=== PATIENT | female | born 1990 | race Caucasian/White ===

== ENCOUNTER 2016-07-05 18:00 | Inpatient (IN) | payer BC, OTHER ==
[2016-07-10] MEDS ORDERED: RINGERS SOLUTION,LACTATED 1,000 ML IV ONE (00:14)
[2016-07-10] MEDS ORDERED: LIDOCAINE HCL 50 ML VIAL PERI PRN (00:14)
[2016-07-10] MEDS ORDERED: ONDANSETRON HCL/PF 2 MG/ML VIAL IV PRN ×2 (00:14→14:20)
[2016-07-10] MEDS ORDERED: OXYTOCIN/DEXTROSE 5%-WATER 30 UNITS/500 ML BAG IV ONE (00:14)
[2016-07-10] MEDS ORDERED: MISOPROSTOL 100 MCG TABLET VG PRN (00:14)
--- NOTE | 2016-07-10 08:28 | PN ---
Progess Note - Interim Narrative: 07/10/16 08:27 Patient starting to become more uncomfortable with contractions Vital signs stable. Status post 1 dose of Cytotec around 1 AM this morning FHT: 120 baseline, reassuring Contractions q 2-3 min Cervix: Fingertips/80/-1 Impression: Intrauterine at 40 6/7 weeks obstruction of labor for postdates Plan: Continue present plan
[2016-07-10] MEDS ORDERED: BUTORPHANOL TARTRATE 2 MG/ML VIAL IV PRN (10:26)
--- NOTE | 2016-07-10 12:46 | PN ---
Progess Note - Interim Narrative: 07/10/16 12:45 Patient got some relief with Stadol starting to become more uncomfortable again Vital signs stable. FHT: 120 baseline, reassuring Contractions q 2-3 min Cervix: Fingertips/90/-1 Impression: Intrauterine at 40 6/7 weeks induction of labor for postdates Plan: Plan to insert a Paez bulb 1 cervix is dilated enough
--- NOTE | 2016-07-10 14:07 | PN ---
Progess Note - Interim Narrative: 07/10/16 14:06 Patient in moderate-severe pain with contractions Cervix /- AROM at 1350, clear fluid Patient fluid bolus for epidural placement.
[2016-07-10] MEDS ORDERED: NALOXONE HCL 1 MG/1 ML SYRG IV PRN (14:20)
[2016-07-10] MEDS ORDERED: fentaNYL CITRATE/PF 50 MCG/ML AMPUL IT SCH (14:30)
--- NOTE | 2016-07-10 15:06 | OR ---
Anesthesia Procedure Note - Anesthesia Procedure Note Narrative: 07/10/16 15:06 ANESTHESIA PROCEDURE NOTE Date of Procedure: 07/10/2016 Time of procedure: 1430. Performed by: José Manuel Serra CRNA Fretted Instruments Inspector: None. Preprocedure diagnosis: Active labor. Post procedure diagnosis: Same. Procedure: Insertion of labor epidural. 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 Findings: See below. Details of the procedure: The patient was placed in a sitting position. Back was prepped with DuraPrep. Patient was then draped in a sterile fashion. Lidocaine 1% was infiltrated to the skin and subcutaneous tissues at the level of the L3 4 interspace. The epidural space was identified using a 18-gauge Tuohy needle with [id number] technique. 20 mcg fentanyl was given intrathecally using a 27 ga. spinal needle. Epidural catheter was inserted without difficulty. Negative test dose was elicited using 5 mL of 1.5% preservative-free lidocaine plus epinephrine 1 200,000. The epidural catheter was then taped and secured in place. EBL: Minimal. Fluids: N/A. Specimen: N/A. Post procedure condition: The patient tolerated the procedure well. No complications were noted. Thank you for this consultation. Murray CRNA
[2016-07-10] MEDS: BUPIVACAINE HCL/0.9 % NACL/PF 250 ML EP PRN (15:18)
[2016-07-10] MEDS: DEXTROSE 5%-LACTATED RINGERS 1,000 ML IV PRN ×2 (19:19→23:08)
[2016-07-10] MEDS ORDERED: ACETAMINOPHEN 325 MG TABLET PO ONE (22:11)
[2016-07-11] MEDS: DEXTROSE 5%-LACTATED RINGERS 1,000 ML IV PRN ×2 (03:31→07:23)
[2016-07-11] MEDS: BUPIVACAINE HCL/0.9 % NACL/PF 250 ML EP PRN (04:09)
--- NOTE | 2016-07-11 08:29 | OR ---
Operative Report - Dictated Report Narrative: Spontaneous vaginal delivery of viable male at 0758 on 07/11/2016 with Apgars 8 and 8, weighing 3497 g in LYNNE position. Cord clamping delayed approximately 1 minute Placenta delivered complete, intact, with three vessel cord Estimated blood loss: less than 50 ml Lacerations: 3cm ssecond degree vaginal laceration repaired with 3-0 Vicryl Rapide
[2016-07-11] MEDS ORDERED: GLYCERIN/WITCH HAZEL LEAF 40 APPL BOX TP PRN (08:30)
[2016-07-11] MEDS ORDERED: HYDROCORTISONE 30 APPL TUBE TP PRN (08:30)
[2016-07-11] MEDS ORDERED: SENNOSIDES 8.6 MG TABLET PO PRN (08:30)
[2016-07-11] MEDS ORDERED: BISACODYL 10 MG SUPP.RECT RC PRN (08:30)
[2016-07-11] MEDS ORDERED: oxyCODONE HCL/ACETAMINOPHEN 1 TAB TABLET PO PRN (08:30)
[2016-07-11] MEDS ORDERED: OXYTOCIN/DEXTROSE 5%-WATER 30 UNITS/500 ML BAG IV ONE (08:30)
[2016-07-11] MEDS ORDERED: BENZOCAINE/MENTHOL 81 SPRAY CAN TP PRN (08:30)
[2016-07-11] MEDS: IBUPROFEN 800 MG TABLET PO PRN ×3 (09:03→22:39)
[2016-07-11] MEDS: oxyCODONE HCL/ACETAMINOPHEN 1 TAB TABLET PO PRN ×3 (09:04→22:40)
[2016-07-11] MEDS: DOCUSATE SODIUM 100 MG CAPSULE PO SCH ×2 (16:37→21:48)
[2016-07-12] MEDS: oxyCODONE HCL/ACETAMINOPHEN 1 TAB TABLET PO PRN ×3 (06:07→19:16)
[2016-07-12] MEDS: IBUPROFEN 800 MG TABLET PO PRN ×3 (06:08→19:17)
--- NOTE | 2016-07-12 09:49 | PN ---
Subjective - Date and Time Seen Date: 07/12/16 Time: 09:49 Objective - Vitals Vitals: Last Vital Signs Temp 36.5 C 07/12/16 08:30 Pulse 81 07/12/16 08:30 Resp 20 07/12/16 08:30 BP 131/68 07/12/16 08:30 Pulse Ox 98 07/11/16 19:17 Patient denies complaints. Lochia wnl Abdomen - soft, nontender Uterus - firm, at umbilicus - 1 No calf tenderness Impression: day #1 - s/p spontaneous vaginal delivery. Plan: Continue routine care
[2016-07-12] MEDS: DOCUSATE SODIUM 100 MG CAPSULE PO SCH ×2 (12:19→20:02)
[2016-07-13] MEDS: IBUPROFEN 800 MG TABLET PO PRN (01:17)
[2016-07-13 02:28] VITALS: BP 119/79
[2016-07-13] MEDS: oxyCODONE HCL/ACETAMINOPHEN 1 TAB TABLET PO PRN (04:46)
--- NOTE | 2016-07-13 08:51 | PN ---
Subjective - Date and Time Seen Date: 07/13/16 Time: 08:51 Objective - Vitals Vitals: Last Vital Signs Temp 36.9 C 07/13/16 02:27 Pulse 57 L 07/13/16 02:27 Resp 16 07/13/16 02:27 BP 119/79 07/13/16 02:27 Pulse Ox 98 07/13/16 02:27 Patient denies complaints. Lochia wnl Abdomen - soft, nontender Uterus - firm, at umbilicus - 2 No calf tenderness Impression: day #2 - s/p spontaneous vaginal delivery. Plan: Routine discharge instructions
[2016-07-13] MEDS: DOCUSATE SODIUM 100 MG CAPSULE PO SCH (09:07)
== END 2016-07-13 11:30 | disposition home or self-care (01) | DRG 775 ==
LOC: OBCLINIC 18:00 → OB 07-10 00:05 → EDSTATUS 07-10 18:00
PROVIDERS: ADMIT Obstetrics & Gynecology; ATTEND Obstetrics & Gynecology
PROC: 10E0XZZ Delivery of Products of Conception, External Approach (ICD-10-PCS; principal; 2016-07-11)
PROC: 0KQM0ZZ Repair Perineum Muscle, Open Approach (ICD-10-PCS; 2016-07-11)
PROC: 10907ZC Drainage of Amniotic Fluid, Therapeutic from Products of Conception, Via Natural or Artificial Opening (ICD-10-PCS; 2016-07-11)
PROC: 4A1HXCZ Monitoring of Products of Conception, Cardiac Rate, External Approach (ICD-10-PCS; 2016-07-11)
PROC: 3E0S3CZ (ICD-10-PCS; 2016-07-11)
DX: O48.0 Post-term pregnancy (principal); O99.02 Anemia complicating childbirth; O70.1 Second degree perineal laceration during delivery; D50.8 Other iron deficiency anemias; Z3A.41 41 weeks gestation of pregnancy; Z37.0 Single live birth

== ENCOUNTER 2018-12-23 11:42 | Inpatient (IN) ==
[2018-12-23] MEDS ORDERED: MISOPROSTOL 100 MCG TABLET VG PRN (11:50)
[2018-12-23 12:09] LABS: Hematocrit 34.3 % (37.0-47.0); Hemoglobin 11.6 gm/dL (12.5-16.0); Mean Cell Volume 94.2 fl (78-100); Mean Corpuscular Hemoglobin 31.9 pg (27-31); Mean Corpuscular Hgb Conc 33.8 g/dl (32-36); Mean Platelet Volume 11.8 fl (8-12.5); Neutrophil # 6.9 K/mm3 (1.3-6.0); Neutrophil % 71.5 % (42-75.0); Platelet Count 223 K/mm3 (150-450); Red Blood Count 3.64 M/mm3 (4.2-5.4); White Blood Count 9.7 K/mm3 (4.0-10.5)
[2018-12-23 12:18] LABS: Albumin * 2.8 gm/dl (3.4-5.0); Anion Gap 14.5 mmol/L (6.8-13.8); BUN/Creatinine Ratio 14.3 (9.0-21.6); Bilirubin, Total 0.6 mg/dL (0.0-1.1); Ca. Corrected For Albumin 9.4 mg/dL (8.4-10.2); Calcium * 8.8 mg/dL (7.9-10.9); Carbon Dioxide 21.4 mmol/L (24-32.6); Potassium 3.9 mmol/L (3.4-4.6); Total Protein 6.8 gm/dL (6.2-8.2)
[2018-12-23 13:20] LABS: Random Urine Total Protein 12.6 mg/dL (0-12)
[2018-12-23 13:56] LABS: Cocaine Ur Negative (NEGATIVE); Urine Barbiturate Negative (NEGATIVE); Urine Benzodiazepines Negative (NEGATIVE); Urine Opiates Negative (NEGATIVE); Urine PCP Negative (NEGATIVE); Urine THC Negative (NEGATIVE)
--- NOTE | 2018-12-23 17:31 | HP ---
Chief Complaint - Chief Complaint Date of Service: 12/23/18 Time of Service: 17:24 Chief Complaint: IOL History of Present Illness: 28 yo at 38 4/7 weeks presents to L&D for induction of labor due to gestational hypertension. Patient had elevated blood pressures in the office last week 138/93 and today 134/94 and 138/91. She denies headache, visual changes, or epigastric pain. This complicated by anemia, uncomplicated asthma, and now GHTN. Rh positive Rubella immune GBS negative. Medical History (Updated 10/01/18 @ 13:54 by Candace Johns RN) Acne Onset Date: Unknown Anemia Onset Date: Unknown As a teenage. 2017-w/pregnancies Asthma Onset Date: Unknown When she gets respiratory infections Body piercing Nonpuerperal abscess of breast Onset Date: Unknown Palpitations Onset Date: ~2011 x2. Holter monitor was negative. Seasonal allergies Onset Date: Unknown Rhinitis , spontaneous [place] teeth extracted Onset Date: ~2012 Surgical History: Surgical History (Updated 10/05/17 @ 16:43 by Candace Johns RN) History of adenoidectomy Onset Date: ~2008 History of cholecystectomy Onset Date: ~2014 History of tonsillectomy Onset Date: ~2008 Skin Tumor Removal Onset Date: ~2002 Fatty tumor removed from right shoulder Family History: Family History (Updated 10/05/17 @ 16:56 by Candace Johns RN) Brother Autism Hypertension Depression Epilepsy Father Alcohol abuse Grandfather Parkinsons disease Grandfather Cancer Lung cancer Mother Alive and well Social History: (Last Reviewed 12/23/18 @ 17:28 by Chito Hilliard DO) Social History: adopted: No jail: No Marital status: household members: children, spouse number of children: 1 current occupational status: employed current occupation: Nurse current occupational exposures/hazards: No Highest education level completed: Associate degree: academi Service: No Tobacco: Smoking Status: Never smoker Alcohol: alcohol intake: current alcohol intake frequency: holiday/special occasion Substance Use: substance use type: does not use Dietary Habits: caffeine: Yes caffeine comment: 4/wk Type: coffee daily servings of milk/calcium: 2-4 Exercise: Physical activity type: none frequency: 3-4 times per week Juhi/Mosque: special juhi needs: No agree to transfusion: Yes Personal Safety: do you feel safe at home: Yes Review Of Systems (GEN) - Review of Systems Generalized/Overall Review: Present: No Symptoms Reported EENTM: Present: No Symptoms Reported Respiratory: Present: No Symptoms Reported Cardiac: Present: No Symptoms Reported Abdominal: Present: No Symptoms Reported Genitourinary: Present: No Symptoms Reported Musculoskeletal: Present: No Symptoms Reported Neurological: Present: No Symptoms Reported Skin: Present: No Symptoms Reported Endocrine: Present: No Symptoms Reported Allergies/Adverse Reactions: Allergies Allergy/AdvReac Type Severity Reaction Status Date / Time amoxicillin [From Augmentin] Allergy Hives Verified 12/23/18 14:01 clavulanic acid Allergy Hives Verified 12/23/18 14:01 [From Augmentin] Sulfa (Sulfonamide Allergy Unknown Verified 12/23/18 14:01 Antibiotics) Home Medications: HOME MEDICATIONS Calcium Carbonate/Vitamin D3 [Calcium 500+D Tablet Chew] 1 ea PO DAILY 07/10/16 [Last Taken 07/09/16] Inulin/Chromium Picolinate [Fiber Gummies] 1 tab PO DAILY 07/10/16 [Last Taken 07/09/16 09:00] Vits96/Iron Fum/Folic [ S] 1 tab PO DAILY 07/10/16 [Last Taken 12/22/18] clindamycin 1 % topical gel 1 applic TP DAILY 10/08/17 [Last Taken 12/23/18] lactobacillus rhamnosus R0011 20 billion cell capsule See Rx Instructions PO .COMPLEX cap 10/08/17 [Last Taken 12/22/18] ferrous sulfate 325 mg (65 mg iron) tablet 325 mg PO DAILY #30 tab 10/01/18 [Last Taken 12/22/18] breast pump See Dose Instructions .ROUTE .MEDSUPPLY #1 ea 12/16/18 [Last Taken Unknown] Exam - Exam Vital Signs: Vital Signs - Last Taken Temp 36.4 C 12/23/18 12:35 Pulse 88 12/23/18 12:35 Resp 18 12/23/18 12:35 BP 125/76 12/23/18 12:35 Pulse Ox 98 12/23/18 12:35 Constitutional: Present: Alert, Oriented x3, Cooperative, No distress ENT Exam: Present: hearing grossly normal Breasts: Present: Exam deferred Respiratory: Present: lungs clear, no respiratory distress Cardiovascular/Chest: Present: regular rate, rhythm Abdomen: Present: soft, nontender, no rebound tenderness, other - gravid /Rectal: Present: Other - Cervix FT/th/-3 Extremity: Present: no pedal edema, no calf tenderness Skin Exam: Present: normal color, warm/dry, no cyanosis Neurologic: Present: alert, normal mood/affect, oriented x 3, other - DTR 2/4 b/l Appearance: Present: appropriate appearance, appropriate insight Eye contact: Present: cooperative, good eye contact, normal speech Thoughts: Present: normal thought pattern, normal mood /affect Diagnostic Studies: Abnormal Lab Results 12/23/18 12/23/18 12/23/18 Range/Units 11:59 11:59 Unknown RBC 3.64 L (4.2-5.4) M/mm3 Hgb 11.6 L (12.5-16.0) gm/dL Hct 34.3 L (37.0-47.0) % MCH 31.9 H (27-31) pg Immature Gran % (Auto) 3.50 H (0.001-0.429) % Immature Gran # (Auto) 0.34 H (0.000-0.0310) K/mm3 Lymphocytes % 17.8 L (20-51) % Neutrophils # 6.9 H (1.3-6.0) K/mm3 Carbon Dioxide 21.4 L (24-32.6) mmol/L Anion Gap 14.5 H (6.8-13.8) mmol/L Est GFR (Non-Af Amer) 136 H (60-130) mL/min ALT 14 L (19-67) U/L Albumin 2.8 L (3.4-5.0) gm/dl Ur Random Creatinine 51.3 L (60-200) mg/dL U Random Total Protein 12.6 H (0-12) mg/dL U [place] Prot/Creat Ratio 246 H (0-199) mg/gm Laboratory Results WBC 9.7 K/mm3 (4.0-10.5) 12/23/18 11:59 RBC 3.64 M/mm3 (4.2-5.4) L 12/23/18 11:59 Hgb 11.6 gm/dL (12.5-16.0) L 12/23/18 11:59 Hct 34.3 % (37.0-47.0) L 12/23/18 11:59 MCV 94.2 fl (78-100) 12/23/18 11:59 MCH 31.9 pg (27-31) H 12/23/18 11:59 MCHC 33.8 g/dl (32-36) 12/23/18 11:59 RDW 14.0 % (11.5-14.0) 12/23/18 11:59 Plt Count 223 K/mm3 (150-450) 12/23/18 11:59 MPV 11.8 fl (8-12.5) 12/23/18 11:59 Immature Gran % (Auto) 3.50 % (0.001-0.429) H 12/23/18 11:59 Immature Gran # (Auto) 0.34 K/mm3 (0.000-0.0310) H 12/23/18 11:59 71.5 % (42-75.0) 12/23/18 11:59 17.8 % (20-51) L 12/23/18 11:59 6.3 % (0.0-9) 12/23/18 11:59 0.4 % (0.0-3.0) 12/23/18 11:59 0.5 % (0.0-1.0) 12/23/18 11:59 Nucleated RBC % 0.0 k/mm3 (0-1) 12/23/18 11:59 6.9 K/mm3 (1.3-6.0) H 12/23/18 11:59 1.72 k/mm3 (1.5-3.5) 12/23/18 11:59 0.6 k/mm3 (0.0-1.0) 12/23/18 11:59 0.0 k/mm3 (0.0-0.7) 12/23/18 11:59 Absolute Basophils 0.1 k/mm3 (0.0-0.1) 12/23/18 11:59 Sodium 136 mmol/L (132-142) 12/23/18 11:59 136 mmol/L (130-142) 12/23/18 11:59 Potassium 3.9 mmol/L (3.4-4.6) 12/23/18 11:59 Chloride 104 mmol/L (97-106) 12/23/18 11:59 Carbon Dioxide 21.4 mmol/L (24-32.6) L 12/23/18 11:59 14.5 mmol/L (6.8-13.8) H 12/23/18 11:59 BUN 8 mg/dL (3-23) 12/23/18 11:59 0.56 mg/dL (0.4-1.4) 12/23/18 11:59 Est GFR (Non-Af Amer) 136 mL/min (60-130) H 12/23/18 11:59 14.3 (9.0-21.6) 12/23/18 11:59 108 mg/dL (70-110) 12/23/18 11:59 Calcium 8.8 mg/dL (7.9-10.9) 12/23/18 11:59 Calcium Adj for Albumin 9.4 mg/dL (8.4-10.2) 12/23/18 11:59 0.6 mg/dL (0.0-1.1) 12/23/18 11:59 AST 23 U/L (0-48) 12/23/18 11:59 ALT 14 U/L (19-67) L 12/23/18 11:59 170 U/L (50-170) 12/23/18 11:59 6.8 gm/dL (6.2-8.2) 12/23/18 11:59 2.8 gm/dl (3.4-5.0) L 12/23/18 11:59 Ur Random Creatinine 51.3 mg/dL (60-200) L 12/23/18 Unknown U Random Total Protein 12.6 mg/dL (0-12) H 12/23/18 Unknown U [place] Prot/Creat Ratio 246 mg/gm (0-199) H 12/23/18 Unknown Negative (NEGATIVE) 12/23/18 Unknown Negative (NEGATIVE) 12/23/18 Unknown Ur Phencyclidine Scrn Negative (NEGATIVE) 12/23/18 Unknown Urine Amphetamine Negative (NEGATIVE) 12/23/18 Unknown U Benzodiazepines Scrn Negative (NEGATIVE) 12/23/18 Unknown Negative (NEGATIVE) 12/23/18 Unknown Negative (NEGATIVE) 12/23/18 Unknown NST reactive. Assessment/Plan - Assessment/Plan (1) Gestational hypertension Assessment: Admit for Cytotec induction of labor. Epidural PRN. Pitocin PRN. Preeclampsia precautions. Problem: Acute Qualifiers: Trimester: third trimester Qualified Code(s): O13.3 - Gestational [-induced] hypertension without significant proteinuria, third trimester (2) Asthma Problem: Inactive Qualifiers: Asthma severity: mild Asthma persistence: intermittent Asthma complication type: uncomplicated Qualified Code(s): J45.20 - Mild intermittent asthma, uncomplicated (3) Anemia Problem: Resolved Qualifiers: Anemia type: iron deficiency Iron deficiency anemia type: inadequate dietary iron intake Qualified Code(s): D50.8 - Other iron deficiency anemias
[2018-12-23] MEDS ORDERED: ACETAMINOPHEN 500 MG TABLET PO PRN (19:43)
[2018-12-23] MEDS: OXYTOCIN/DEXTROSE 5%-WATER 30 UNITS/500 ML BAG IV ONE (20:20)
--- NOTE | 2018-12-24 12:35 | PN ---
Progess Note - Interim Date: 12/24/18 Time: 12:32 Narrative: 12/24/18 12:32 Patient becoming much more uncomfortable with contractions Vital signs stable. Pitocin at 12 mu/min. FHT: 140 baseline, moderate variability, good accelerations, occasional mild variable deceleration, rare late deceleration. Contractions q 2-3 min Cervix: Soft, posterior, unable to get to internal loss, probably about 3/50/-4. Paez bulb that was placed within the cervical canal earlier this morning is out. Impression: Intrauterine at 38 5/7 weeks induction of labor for gestational hypertension Plan: We will try various position changes get had to engage in pelvis. AROM when possible. Epidural when desires.
[2018-12-24] MEDS: OXYTOCIN/DEXTROSE 5%-WATER 30 UNITS/500 ML BAG IV ONE (20:13)
[2018-12-24] MEDS: RINGER'S SOLUTION,LACTATED 1,000 ML IV ONE (20:13)
[2018-12-24] MEDS ORDERED: NALOXONE HCL 1 MG/1 ML SYRG IV PRN (20:54)
[2018-12-24] MEDS ORDERED: ONDANSETRON HCL/PF 2 MG/ML VIAL IV PRN (20:54)
[2018-12-24] MEDS ORDERED: BUPIVACAINE HCL/0.9 % NACL/PF 250 ML EP PRN (20:54)
[2018-12-24] MEDS ORDERED: fentaNYL CITRATE/PF 50 MCG/ML AMPUL IT SCH (21:00)
[2018-12-24] MEDS: DEXTROSE 5%-LACTATED RINGERS 1,000 ML IV PRN (21:20)
--- NOTE | 2018-12-24 22:14 | ANES ---
Anesthesia Pre Procedure Eval Vitals/Labs: Last Vital Signs Temp 36.4 C 12/23/18 12:35 Pulse 88 12/23/18 12:35 Resp 18 12/23/18 12:35 BP 125/76 12/23/18 12:35 Pulse Ox 98 12/23/18 12:35 HOME MEDICATIONS RX: Calcium Carbonate/Vitamin D3 [Calcium 500+D Tablet Chew] 1 ea PO DAILY 07/10/16 [Last Taken 07/09/16] RX: Inulin/Chromium Picolinate [Fiber Gummies] 1 tab PO DAILY 07/10/16 [Last Taken 07/09/16 09:00] RX: Vits96/Iron Fum/Folic [ S] 1 tab PO DAILY 07/10/16 [Last Taken 12/22/18] clindamycin phosphate 1 % topical gel 1 applic TP DAILY 10/08/17 [Last Taken 12/23/18] lactobacillus rhamnosus R0011 20 billion cell capsule See Rx Instructions PO .COMPLEX cap 10/08/17 [Last Taken 12/22/18] ferrous sulfate 325 mg (65 mg iron) tablet 325 mg PO DAILY #30 tab 10/01/18 [Last Taken 12/22/18] breast pump See Dose Instructions .ROUTE .MEDSUPPLY #1 ea 12/16/18 [Last Taken Unknown] Allergies/Adverse Reactions: Allergies Allergy/AdvReac Type Severity Reaction Status Date / Time amoxicillin [From Augmentin] Allergy Hives Verified 12/23/18 14:01 clavulanic acid Allergy Hives Verified 12/23/18 14:01 [From Augmentin] Sulfa (Sulfonamide Allergy Unknown Verified 12/23/18 14:01 Antibiotics) - Planned Procedure Planned Procedure: MEDICAL INDUCTION Medication List Reviewed:: Yes Allergies Verified: Yes Medical History (Last Reviewed 12/24/18 @ 22:11 by Ben Sandoval CRNA) Acne Onset Date: Unknown Anemia Onset Date: Unknown As a teenage. 2017-w/pregnancies Asthma Onset Date: Unknown When she gets respiratory infections Body piercing Nonpuerperal abscess of breast Onset Date: Unknown Palpitations Onset Date: ~2011 x2. Holter monitor was negative. Seasonal allergies Onset Date: Unknown Rhinitis , spontaneous [place] teeth extracted Onset Date: ~2012 Surgical History (Last Reviewed 12/24/18 @ 22:11 by Ben Sandoval CRNA) History of adenoidectomy Onset Date: ~2008 History of cholecystectomy Onset Date: ~2014 History of tonsillectomy Onset Date: ~2008 Skin Tumor Removal Onset Date: ~2002 Fatty tumor removed from right shoulder Family History (Last Reviewed 12/24/18 @ 22:11 by Ben Sandoval CRNA) Brother Autism Hypertension Depression Epilepsy Father Alcohol abuse Grandfather Parkinsons disease Grandfather Cancer Lung cancer Mother Alive and well - Family Anesthesia History Family History:: no untoward family reactions to anesthesia, no familial bleeding tendencies, no family history of clotting disorders, no family history of premature - Airway/Neck/Teeth Within Normal Limits:: Yes Neck Exam: full range of motion Mallampatti Score: 2 Thyromental (T-M) distance: > 6 cm Mandibulo Hyoid distance: > 3 cm - Respiratory Respiratory History: asthma Respiratory Physical: lungs clear Smoking Status: Never smoker Sleep Apnea currently treated: No Sleep Apnea by current assessment: No - Cardiovascular Tolerate Activity: Fair Heart Sounds: S1 & S2, Regular - Anesthesia Assessment and Plan ASA Class: PS, II, E Anesthesia Type Plan: Epidural - CSE for labor analgesia
--- NOTE | 2018-12-24 22:32 | ANES ---
Post Anesthesia Discharge - Transfer of Care Transfer of Care handoff given to nurse: Yes - Discharge from PACU Discharge from PACU when meets criteria: Yes - Comfortable post CSE
--- NOTE | 2018-12-24 22:34 | ANES ---
Anesthesia Procedure Note Procedure Note: ANESTHESIA PROCEDURE NOTE Date of Procedure: [12/24/2018 Time of procedure: 22:10 PM. Performed by: GREG Delgadillo CRNA, MSN [employer] Practitioner: Verito Wilde RN. Preprocedure diagnosis: Active labor, labor pain. Post procedure diagnosis: Same. Procedure:Epidural for labor analgesia L3-4. Indications: Labor pain. Findings: See below. Details of the procedure: The patient was placed on the side of the bed in sitting positionand prepped with DuraPrep then draped in a sterile fashion. Li docaine 1% was infiltrated to the skin and subcutaneous tissues at the level of the L3-4 interspace. An 18-gauge Touhy needle was used to approach the epidural space with loss of resistance technique. Once loss of resistance was achieved a 27-gauge spinal needle was passed through the epidural needle and CSF was contacted. After CSF returned, 20 mcg of fentanyl was injected in the spinal needle was removed the epidural catheter was then threaded approximately 4 cm in the epidural needle was removed. The catheter was taped in place and after careful aspiration 3 mL of 1.5% lidocaine with 1-200,000 epinephrine was injected without change in maternal heart rate or sensorium. . EBL: Minimal. Fluids: N/A. Specimen: N/A. Post procedure condition: The patient tolerated the procedure well with good relief. No complications were noted. Thank you for this consultation. Ben Sandoval CRNA, GREG, MSN
--- NOTE | 2018-12-24 23:00 | PN ---
Progess Note - Interim Date: 12/24/18 Time: 22:57 Narrative: 12/24/18 22:57 Patient comfortable with epidural Vital signs stable. Pitocin at 14 mu/min. FHT: 150 baseline, reassuring contractions q 2-3 min Cervix: 5/90/-3 Impression: Intrauterine at 38 5/7 weeks induction of labor for gestational hypertension Plan: Continue present plan. Expect normal vaginal delivery within the next few hours
[2018-12-25] MEDS ORDERED: LIDOCAINE HCL/EPINEPHRINE 20 ML VIAL ONE (03:26)
[2018-12-25] MEDS: RINGER'S SOLUTION,LACTATED 1,000 ML IV ONE (03:31)
--- NOTE | 2018-12-25 03:38 | ANES ---
Post Anesthesia Assessment - Vital Signs Vitals: Last Vital Signs Temp 36.4 C 12/23/18 12:35 Pulse 88 12/23/18 12:35 Resp 18 12/23/18 12:35 BP 125/76 12/23/18 12:35 Pulse Ox 98 12/23/18 12:35 Airway Patency: Normal - Mental Status Level Of Consciousness: Awake, Alert, Appropriate - Pain Level Pain Score: 9 - N/V Assessment Nausea/Vomiting Presence: None Dehydration:: No - Additional Notes Comments:: C/O pain even after previous ropivicaine bolus. No change in pain level after epidural pump stopped. Lidocaine 0.5% with 1:200,000 epinepherine given. No change in 5 minutes, plan interthecal.
[2018-12-25] MEDS ORDERED: fentaNYL CITRATE/PF 50 MCG/ML AMPUL ONE (03:40)
[2018-12-25] MEDS ORDERED: fentaNYL CITRATE/PF 50 MCG/ML AMPUL IT ONE (03:50)
[2018-12-25] MEDS ORDERED: LIDOCAINE HCL/EPINEPHRINE 10 ML VIAL IJ ONE (03:55)
[2018-12-25] MEDS ORDERED: LIDOCAINE HCL/EPINEPHRINE 20 ML VIAL IJ ONE (04:00)
[2018-12-25] MEDS: DEXTROSE 5%-LACTATED RINGERS 1,000 ML IV PRN (04:39)
--- NOTE | 2018-12-25 05:14 | PN ---
Progess Note - Interim Date: 12/25/18 Time: 05:08 Narrative: 12/25/18 05:08 Patient has had difficulty with pain control throughout the night; currently is comfortable with having her epidural redone. Blood pressures have remained stable. Afebrile. Pitocin was turned off due to tach systole currently contractions have significantly spaced out. FHT: 150 baseline, minimum to moderate variability with accelerations and occasional variable deceleration with contractions. IUPC was placed due to inability to assess strength of contractions. Contractions 3 to 5 minutes apart Spontaneous rupture of membranes at 2315 which started as clear and became thick meconium Cervix: 8/edematous/-2, suspect cervical edema may be the patient inadvertently pushing while she was in pain waiting for her epidural. Impression: Intrauterine at 38-6/7 weeks. Induction of labor for gestational hypertension. Plan: Will restart Pitocin to obtain adequate contractions and reassess in the next 1 to 2 hours as long as tracing remains reassuring.
--- NOTE | 2018-12-25 08:02 | PN ---
Progess Note - Interim Date: 12/25/18 Time: 08:00 Narrative: 12/25/18 08:00 Patient comfortable with epidural Vital signs stable. Pitocin at 4 mu/min. FHT: 160 baseline, moderate to severe variables with some of the contractions contractions q 3-4 min Cervix: Rim/0 Impression: Intrauterine at 38 6/7 weeks. Induction of labor for gestational hypertension. Plan: Anticipate normal spontaneous vaginal delivery soon. Risk benefits alternatives to operative vaginal delivery discussed with patient if prolonged deceleration or more frequent decelerations occur during the pushing stage.
[2018-12-25] MEDS ORDERED: OXYTOCIN/DEXTROSE 5%-WATER 30 UNITS/500 ML BAG IV ONE (09:28)
[2018-12-25] MEDS ORDERED: HYDROCORTISONE 30 APPL TUBE TP PRN (09:28)
[2018-12-25] MEDS ORDERED: BENZOCAINE/MENTHOL 81 SPRAY CAN TP PRN (09:28)
[2018-12-25] MEDS ORDERED: oxyCODONE HCL/ACETAMINOPHEN 1 TAB TABLET PO PRN (09:28)
[2018-12-25] MEDS ORDERED: BISACODYL 10 MG SUPP.RECT RC PRN (09:28)
[2018-12-25] MEDS ORDERED: SENNOSIDES 8.6 MG TABLET PO PRN (09:28)
[2018-12-25] MEDS ORDERED: GLYCERIN/WITCH HAZEL LEAF 40 APPL BOX TP PRN (09:28)
--- NOTE | 2018-12-25 09:38 | OR ---
Operative Report - Dictated Report Narrative: Indication: Suspicion of potential/immediate compromise Pre Procedure: Patient was counseled to the risk, benefits, and alternatives to operative vaginal delivery. All questions were answered. Patient consented to proceed with operative vaginal delivery. Cervix was completely dilated and effaced, maternal- size appropriate for application, bladder was emptied, flexion point identified, cup choice appropriate for application site, maternal tissue excluded from vacuum cup heart rate interpretation: Baseline of 145 with 1-1/2-minute decelerations down to the 60s, minimum variability. EFW 3700 g, station +2, Position of head LYNNE Anesthesia: Epidural Procedure: Total application time of the Kiwi Pro with Palm Pump was 108 seconds Maximum vacuum achieved was 500 mm Hg Number of pulls 2 Number of involuntary releases 0 Vacuum reduced between contractions Unable to get adequate seal for sufficient traction to move baby due to excess hair. For this reason further attempts with vacuum or abandon and proceeded with forcep delivery. Degree of rotation 30 Procedure Carpio/Luikart forceps easily applied, hinge/lock approximated without difficulty, 1 pole, advancement in station with each pull, degree of rotation 30 degrees Post Procedure Viable male born at 0907 on 12/25/2018 with Apgars 5 and 8, weighing 3553 g in LYNNE position. Cord gases collected A: 7.19,64.5,TNP,-5.4 V:7.5,24.3,<36.7,-2.3 Placenta spontaneously delivered EBL less than 100 mL, tight nuchal cord x1, erythema on temples and cheeks bilaterally, moving both arms but less vigorous with the left arm. No shoulder dystocia Lacerations: (3 cm) second-degree vaginal laceration repaired with 3-0 Vicryl Rapide History for History for Definition: * The number of deliveries resulting in a live the patient experienced prior to current hospitalization * The previous delivery of live twins or any live multiple gestation is considered one live event. *If primagravida or nulliparous is documented select zero for the number of previous live births. Live Events: Live Events: 1
[2018-12-25] MEDS: oxyCODONE HCL/ACETAMINOPHEN 1 TAB TABLET PO PRN ×3 (10:20→20:00)
[2018-12-25] MEDS: IBUPROFEN 800 MG TABLET PO PRN ×3 (10:21→23:41)
[2018-12-25] MEDS: DOCUSATE SODIUM 100 MG CAPSULE PO SCH ×2 (17:37→20:01)
[2018-12-26] MEDS: IBUPROFEN 800 MG TABLET PO PRN ×3 (05:54→21:39)
--- NOTE | 2018-12-26 09:11 | PN ---
Subjective - Date and Time Seen Date: 12/26/18 Time: 09:11 Objective - Vitals Vitals: Last Vital Signs Temp 36.5 C 12/26/18 07:04 Pulse 65 12/26/18 07:04 Resp 16 12/26/18 07:04 BP 100/58 12/26/18 07:04 Pulse Ox 99 12/26/18 07:04 Patient denies complaints. Breast-feeding Lochia wnl abdomen - soft, nontender Uterus -firm, at umbilicus - 1 no calf tenderness Impression: day #1 - s/p spontaneous vaginal delivery. Plan: Continue routine care Cauti Physician Documentation - Urinary Catheter Management Urethral (Paez) Date of Insertion: 12/24/18 Time of Insertion: 23:00 Date of Removal: 12/25/18 Time of Removal: 08:50 Assessment/Plan - Problems/Diagnosis (1) Gestational hypertension Problem: Acute Qualifiers: Trimester: third trimester Qualified Code(s): O13.3 - Gestational [-induced] hypertension without significant proteinuria, third trimester (2) Asthma Problem: Inactive Qualifiers: Asthma severity: mild Asthma persistence: intermittent Asthma complication type: uncomplicated Qualified Code(s): J45.20 - Mild intermittent asthma, uncomplicated (3) Anemia Problem: Resolved Qualifiers: Anemia type: iron deficiency Iron deficiency anemia type: inadequate dietary iron intake Qualified Code(s): D50.8 - Other iron deficiency anemias
[2018-12-26] MEDS: DOCUSATE SODIUM 100 MG CAPSULE PO SCH ×2 (09:20→21:38)
[2018-12-26] MEDS: oxyCODONE HCL/ACETAMINOPHEN 1 TAB TABLET PO PRN (17:24)
[2018-12-27] MEDS: oxyCODONE HCL/ACETAMINOPHEN 1 TAB TABLET PO PRN (02:12)
[2018-12-27] MEDS: IBUPROFEN 800 MG TABLET PO PRN (07:04)
[2018-12-27] MEDS: DOCUSATE SODIUM 100 MG CAPSULE PO SCH ×2 (07:04→09:06)
[2018-12-27 07:20] VITALS: BP 112/74
--- NOTE | 2018-12-27 12:16 | PN ---
Subjective - Date and Time Seen Date: 12/27/18 Time: 12:16 Objective - Vitals Vitals: Last Vital Signs Temp 36.4 C 12/27/18 07:10 Pulse 59 L 12/27/18 07:10 Resp 18 12/27/18 07:10 BP 112/74 12/27/18 07:10 Pulse Ox 99 12/27/18 07:10 Patient denies complaints. Lochia wnl abdomen - soft, nontender Uterus -firm, at umbilicus - 2 no calf tenderness Impression: day #2 - s/p spontaneous vaginal delivery. Plan: Routine discharge instructions Cauti Physician Documentation - Urinary Catheter Management Urethral (Paez) Date of Insertion: 12/24/18 Time of Insertion: 23:00 Date of Removal: 12/25/18 Time of Removal: 08:50 Assessment/Plan - Problems/Diagnosis (1) Gestational hypertension Problem: Acute Qualifiers: Trimester: third trimester Qualified Code(s): O13.3 - Gestational [-induced] hypertension without significant proteinuria, third trimester (2) Asthma Problem: Inactive Qualifiers: Asthma severity: mild Asthma persistence: intermittent Asthma complication type: uncomplicated Qualified Code(s): J45.20 - Mild intermittent asthma, uncomplicated (3) Anemia Problem: Resolved Qualifiers: Anemia type: iron deficiency Iron deficiency anemia type: inadequate dietary iron intake Qualified Code(s): D50.8 - Other iron deficiency anemias
== END 2018-12-27 12:45 | disposition home or self-care (01) | DRG 807 ==
LOC: OB 11:42
PROVIDERS: ADMIT Obstetrics & Gynecology; ATTEND Obstetrics & Gynecology
CPT/HCPCS: 36415; 59025; 80053; 80307; 82570; 84155; 84156; 85025; 88307

== ENCOUNTER → 2019-04-09 10:05 | Observation (INO) ==
--- NOTE | 2019-04-08 18:01 | HP ---
Chief Complaint - Chief Complaint Date of Service: 04/08/19 Time of Service: 17:00 Chief Complaint: right flank pain History of Present Illness: Patient started having right flank pain yesterday. She had an IUD placed approximately a month ago, and has had some spotting since then, so it's been difficult to tell if she's had hematuria. Today, her pain worsened and she has been vomiting. CT abdomen/pelvis and US of her abdomen and pelvis showed moderate to severe right sided hydronephrosis and a 5 mm obstructing stone. Her IUD is in place. UA was positive for blood, negative for bacteria. She was given IM toradol this morning, which somewhat helped, but her pain has been persistent and severe. She does not believe she would be able to control pain at home. She is currently her infant, who is 3 months old. She has never had kidney stones before. Medical History (Last Reviewed 04/08/19 @ 10:43 by Beti Corcoran LPN) Acne Onset Date: Unknown Anemia Onset Date: Unknown As a teenage. 2017-w/pregnancies Asthma Onset Date: Unknown When she gets respiratory infections Body piercing Chorioamnionitis Onset Date: 12/25/18 early acute chorioamnionitis and funisitis Nonpuerperal abscess of breast Onset Date: Unknown Palpitations Onset Date: ~2011 x2. Holter monitor was negative. Seasonal allergies Onset Date: Unknown Rhinitis , spontaneous Surgical History: Surgical History (Last Reviewed 04/08/19 @ 10:43 by Beti Corcoran LPN) History of adenoidectomy Onset Date: ~2008 History of cholecystectomy Onset Date: ~2014 History of tonsillectomy Onset Date: ~2008 Skin Tumor Removal Onset Date: ~2002 Fatty tumor removed from right shoulder Melvin teeth extracted Onset Date: ~2012 Family History: Family History (Last Reviewed 04/08/19 @ 10:43 by Beti Corcoran LPN) Brother Autism Hypertension Depression Epilepsy Father Alcohol abuse Grandfather Parkinsons disease Grandfather Cancer Lung cancer Mother Alive and well Social History: (Last Updated 04/08/19 @ 12:24 by Kelvin Burrows DO) Social History: adopted: No retirement: No Marital status: household members: children, spouse number of children: 1 current occupational status: employed current occupation: Nurse current occupational exposures/hazards: No Highest education level completed: Associate degree: academi Service: No Tobacco: Smoking Status: Never smoker Alcohol: alcohol intake: current alcohol intake frequency: holiday/special occasion Substance Use: substance use type: does not use Dietary Habits: caffeine: Yes caffeine comment: 4/wk Type: coffee daily servings of milk/calcium: 2-4 Exercise: Physical activity type: none frequency: 3-4 times per week Juhi/Advent: special juhi needs: No agree to transfusion: Yes Personal Safety: do you feel safe at home: Yes Review Of Systems (GEN) - Review of Systems Generalized/Overall Review: Absent: Fever Respiratory: Absent: Shortness of Breath Cardiac: Present: Palpitations - last week Abdominal: Present: Nausea, Vomiting, Abdominal Pain Genitourinary: Present: Hematuria, Dysuria - at end of urination Musculoskeletal: Present: No Symptoms Reported Neurological: Present: No Symptoms Reported Skin: Present: No Symptoms Reported Immunizations: IMMUNIZATION HX Immunizations Up to Date Yes Allergies/Adverse Reactions: Allergies Allergy/AdvReac Type Severity Reaction Status Date / Time amoxicillin [From Augmentin] Allergy Hives Verified 04/08/19 10:42 clavulanic acid Allergy Hives Verified 04/08/19 10:42 [From Augmentin] Sulfa (Sulfonamide Allergy Unknown Verified 04/08/19 10:42 Antibiotics) Home Medications: HOME MEDICATIONS Calcium Carbonate/Vitamin D3 [Calcium 500+D Tablet Chew] 1 ea PO DAILY 07/10/16 [Last Taken 07/09/16] Vits96/Iron Fum/Folic [ S] 1 tab PO DAILY 07/10/16 [Last Taken 12/22/18] clindamycin phosphate 1 % topical gel 1 applic TP DAILY 10/08/17 [Last Taken 12/23/18] lactobacillus rhamnosus R0011 20 billion cell capsule See Rx Instructions PO .COMPLEX cap 10/08/17 [Last Taken 12/22/18] fosfomycin tromethamine 3 gram oral packet 3 g PO ONCE 0 Days #1 ea 02/17/19 [Last Taken Unknown] ketorolac 30 mg/mL injection solution 30 mg IM ONCE #1 ml 04/08/19 [Last Taken Unknown] Exam - Exam Vital Signs: Temp: 37 C Pulse: 48 BP: 108/48 RR: 18 O2: 98% room air Constitutional: Present: Cooperative - appears uncomfortable Respiratory: Present: lungs clear, normal breath sounds Cardiovascular/Chest: Present: regular rate, rhythm Abdomen: Present: CVA tenderness - right Appearance: Present: denies illness Assessment/Plan - Assessment/Plan (1) Hydronephrosis due to obstruction of ureter Assessment: 5 mm distal right ureteral stone seen on CT, with moderate to severe right sided hydronephrosis, hydroureter, and hypertrophy of the right kidney. She was given 30 mg IM toradol around 10 am this morning in the clinic, which somewhat helped with her pain, but she is still significantly uncomfortable. She is being admitted for pain control and fluids to help her pass the stone. She has not been able to maintain po hydration. She again received 30 mg IM toradol around 1700 this evening, and will continue this q6h prn. Will also add 1,000 mg ofirmev q6h prn, as the toradol was only mildly helpful. Will do 8 mg ondansetron q6h for nausea, and 125 cc/hr NS. Will also start 0.4 mg tamsulosin for her to take until she passes the stone. If she is not better in the morning, will discuss with [facility] urology. She is . Will have her dump her breast milk while taking tamsulosin. UA was positive for blood, 1+ leukocyte esterase, but negative for nitrites and bacteria. No abx needed currently. Problem: Acute (2) Ureteral calculus, right Assessment: see above Problem: Acute (3) Palpitations with regular cardiac rhythm Assessment: She recently had a couple of episodes of tachycardia, and is scheduled to see cardiology this week. Will need to closely monitor for this, and keep her well hydrated. Problem: Resolved
[2019-04-09 06:57] LABS: Albumin * 3.3 gm/dl (3.4-5.0); Anion Gap 10.4 mmol/L (6.8-13.8); BUN/Creatinine Ratio 15.2 (9.0-21.6); Bilirubin, Total 1.2 mg/dL (0.0-1.1); Ca. Corrected For Albumin 8.7 mg/dL (8.4-10.2); Calcium * 8.5 mg/dL (7.9-10.9); Carbon Dioxide 26.6 mmol/L (24-32.6); Total Protein 6.2 gm/dL (6.2-8.2)
[2019-04-09 07:02] LABS: Hematocrit 34.6 % (37.0-47.0); Hemoglobin 11.3 gm/dL (12.5-16.0); Mean Cell Volume 91.8 fl (78-100); Mean Corpuscular Hgb Conc 32.7 g/dl (32-36); Mean Platelet Volume 10.4 fl (8-12.5); Neutrophil # 4.3 K/mm3 (1.3-6.0); Neutrophil % 58.6 % (42-75.0); Platelet Count 236 K/mm3 (150-450); Red Blood Count 3.77 M/mm3 (4.2-5.4); Red Cell Distribution Width 12.5 % (11.5-14.0); White Blood Count 7.3 K/mm3 (4.0-10.5)
--- NOTE | 2019-04-09 08:38 | DS ---
(1) Hydronephrosis due to obstruction of ureter Problem: Acute (2) Ureteral calculus, right Problem: Acute (3) Palpitations with regular cardiac rhythm Problem: Resolved Date of Discharge:: 04/09/19 Hospital Course: Patient started having right flank pain the day prior to admission. She had an IUD placed approximately a month ago, and has had some spotting since then, so it's been difficult to tell if she's had hematuria. On the day of admission her pain worsened and she was been vomiting. She felt like she was vomiting due to the pain. CT abdomen/pelvis and US of her abdomen and pelvis showed moderate to severe right sided hydronephrosis and a 5 mm obstructing stone in the distal right ureter. Her IUD is in place. UA was positive for blood, negative for bacteria. WBC not elevated on CBC. She was given IM toradol the morning of 04/08, which somewhat helped, but her pain was been persistent and severe. She did not believe she would be able to control pain at home. She is currently her infant, who is 3 months old. She has never had kidney stones before. She was admitted, given 0.4 mg tamsulosin, started on 125 cc/hr IV fluids. Pain was controlled with 30 mg toradol, which she used once overnight. She used zofran initially on admission, and did not need it again overnight. The next morning, she felt much better, and was comfortable going home. She felt like the stone was now in her bladder. Her case was discussed with Dr. Vega, urology. Will DC her with tamsulosin and 10 mg po toradol, and will ask her to strain her urine. He will be able to see her tomorrow at his office. Will have her dump her breast milk currently. She recently had episodes of SVT, which did not recur during her admission. She has an appt to see cardiology tomorrow at [facility]. Procedures Performed: none Results and Findings: Lab Pending Results 04/09/19 06:36: WBC 7.3 D, RBC 3.77 L, Hgb 11.3 L, Hct 34.6 L, MCV 91.8, MCH 30.0, MCHC 32.7, RDW 12.5, Plt Count 236, MPV 10.4, Immature Gran % (Auto) 0.30, Immature Gran # (Auto) 0.02, Neutrophils % 58.6, Lymphocytes % 27.0, Monocytes % 11.2 H, Eosinophils % 2.2, Basophils % 0.7, Nucleated RBC % 0.0, Neutrophils # 4.3, Lymphocytes # 1.98, Monocytes # 0.8, Eosinophils # 0.2, Absolute Basophils 0.1 04/09/19 06:36: Sodium 140, Plasma Sodium 140, Potassium 4.0, Chloride 107 H, Carbon Dioxide 26.6, Anion Gap 10.4, BUN 15, Creatinine 0.99, Est GFR (Non-Af Amer) 70 D, BUN/Creatinine Ratio 15.2, Random Glucose 85, Calcium 8.5, Calcium Adj for Albumin 8.7, Total Bilirubin 1.2 H, AST 20, ALT 24, Alkaline Phosphatase 73, Total Protein 6.2, Albumin 3.3 L Discharge Location: Home Disposition: Home self-care Condition: Good Discharge Activity: Activity as tolerated Discharge Diet: General/regular food Referrals: Vicki Garnett DO [Primary Care Provider] - One Week Bharathi Vega MD [Associate] - 04/10/19 Additional Patient Instructions (free text): Please strain urine. Prescriptions (Any new or edited meds): Tamsulosin HCl [Flomax] 0.4 mg PO DAILY@1800 #14 cap.sr.24h Transmission Status: Pending to [place], [place] Tamsulosin HCl 0.4 mg PO DAILY #7 cap.er.24h Transmission Status: Pending to [place], [place] Ketorolac Tromethamine [Toradol] 10 mg PO Q6H PRN #10 tab PRN Reason: Pain Transmission Status: Pending to [place], [place] Ondansetron [Zofran Odt] 4 mg PO Q6H PRN #10 tab PRN Reason: Nausea Transmission Status: Pending to [place], [place] Complete Home Medications List: Complete Home Medication List: Calcium Carbonate/Vitamin D3 [Calcium 500+D Tablet Chew] 1 ea PO DAILY 07/10/16 Vits96/Iron Fum/Folic [ S] 1 tab PO DAILY 07/10/16 clindamycin phosphate 1 % topical gel 1 applic TP DAILY 08/06/18 lactobacillus rhamnosus R0011 20 billion cell capsule 1 cap PO DAILY cap 08/08/20 Inulin [Fiber Gummies] 2 gm PO DAILY 04/08/19 Ketorolac Tromethamine [Toradol] 10 mg PO Q6H PRN #10 tab 04/09/19 Ondansetron [Zofran Odt] 4 mg PO Q6H PRN #10 tab 04/09/19 Tamsulosin HCl 0.4 mg PO DAILY #7 cap.er.24h 04/09/19 Tamsulosin HCl [Flomax] 0.4 mg PO DAILY@1800 #14 cap.sr.24h 04/09/19
[2019-04-09 10:05] VITALS: BP 113/77
[~2019-04-09 10:05] MED LIST: ACETAMINOPHEN 1,000 MG/100 ML BTL IV PRN; KETOROLAC TROMETHAMINE 30 MG/ML VIAL IV PRN; NORMAL SALINE 1,000 ML IV ONE; ONDANSETRON HCL/PF 2 MG/ML VIAL IV PRN; TAMSULOSIN HCL 0.4 MG CAP.SR.24H PO SCH
== END | disposition home or self-care (01) ==
LOC: MS
PROVIDERS: ADMIT Family Medicine; ATTEND Family Medicine
CPT/HCPCS: 36415; 80053; 85025; 96374; 96375; G0378; J2405